=== PATIENT | male | born 1965 | race African-American/Black ===

== ENCOUNTER → 2017-11-09 | Outpatient (CLI) | payer OTHER ==
--- NOTE | 2017-11-09 16:28 | RADIOLOGY REPORT (SQ) ---
EXAM DESCRIPTION: HIP RIGHT AP/LATERAL COMPLETED DATE/TIME: 11/09/2017 4:20 pm REASON FOR STUDY: RT HIP PAIN E78.5 HYPERLIPIDEMIA, UNSPECIFIED M25.551 PAIN IN RIGHT HIP COMPARISON: None. NUMBER OF VIEWS: Two views. TECHNIQUE: AP pelvis and additional frog-leg view of the right hip. LIMITATIONS: None. FINDINGS: MINERALIZATION: Normal. RIGHT HIP: No fracture or dislocation. No worrisome bone lesions. No contour deformity. No joint sp jamshid narrowing. LEFT HIP: No fracture or dislocation. No worrisome bone lesions. PUBIS AND ISCHIUM: No fracture. PELVIS: No fracture. SACRUM: No fracture or dislocation. No worrisome bone lesions. LOWER LUMBAR SPINE: No fracture or dislocation. No worrisome bone lesions. No significant disc disea se. SOFT TISSUES: No findings. OTHER: No other significant finding. IMPRESSION: NEGATIVE STUDY OF THE RIGHT HIP. NO EXPLANATION FOR PAIN. TECHNICAL DOCUMENTATION: JOB ID: [id number] [employer]- All Rights Reserved
== END ==
LOC: OD 16:02
PROVIDERS: ATTEND Family Medicine
DX: M25.551 Pain in right hip (principal); E78.5 Hyperlipidemia, unspecified

== ENCOUNTER → 2018-02-15 | Outpatient (CLI) | payer OTHER ==
--- NOTE | 2018-02-15 10:58 | RADIOLOGY REPORT (SQ) ---
EXAM DESCRIPTION: U/S ABDOMEN LIMITED W/O DOP COMPLETED DATE/TIME: 02/15/2018 10:12 am REASON FOR STUDY: ABN LIVER FUNCTION R94.5 ABNORMAL RESULTS OF LIVER FUNCTION STUDIES COMPARISON: None. TECHNIQUE: Dynamic and static grayscale images acquired of the abdomen and recorded on PACS. Additio nal selected color Doppler and spectral images recorded. LIMITATIONS: Upper abdominal bowel gas FINDINGS: PANCREAS: Midline pancreas unremarkable LIVER: No masses. Echotexture normal. LIVER VASCULATURE: Normal directional flow of the main portal vein and hepatic veins. GALLBLADDER: No stones. Normal wall thickness. No pericholecystic fluid. ULTRASOUND-DETECTED OVALLES'S SIGN: Negative. INTRAHEPATIC DUCTS AND COMMON DUCT: No intrahepatic biliary ductal dilatation. Common bile duct at t he tim hepatis difficult to visualize due to bowel gas. INFERIOR VENA CAVA: Normal flow. AORTA: No aneurysm. RIGHT KIDNEY: Normal size. Normal echogenicity. No solid or suspicious masses. No hydronephrosis. No calcifications. PERITONEAL AND RIGHT PLEURAL SPACE: No ascites or effusions. OTHER: No other significant findings. IMPRESSION: Normal liver echogenicity. No intrahepatic biliary ductal dilatation. Common bile duct at the tim hepatis not well seen. No gallstones. TECHNICAL DOCUMENTATION: JOB ID: [id number] [employer]- All Rights Reserved Reading location - IP/workstation name: [facility]
== END ==
LOC: RAD 08:49
PROVIDERS: ATTEND Physician Assistant
DX: R94.5 Abnormal results of liver function studies (principal)
CPT/HCPCS: 76705